=== PATIENT | male | born 1985 | race Caucasian/White ===

== ENCOUNTER 2018-07-11 03:17 | Emergency (ER) | payer OTHER ==
[~2018-07-11] VITALS: Ht 172.7 cm; Wt 72.6 kg
[2018-07-11] MEDS ORDERED: PROZAC20 MG PO (03:22)
[2018-07-11] MEDS ORDERED: COZAAR 25 MG TA25 M1 PO (03:22)
[2018-07-11 04:09] LABS: ABSOLUTE LYMPHOCYTES 0.6 thou/uL (0.8-5.3); ABSOLUTE MONOCYTES 0.8 thou/uL (0.0-1.2); ABSOLUTE NEUTROPHILS 3.1 thou/uL (1.6-8.1); BASOPHILS 0.6 %; EOSINOPHILS 0.3 %; HEMATOCRIT 40.2 % (42.0-52.0); LYMPHOCYTES 13.5 %; MCH 35.8 pg (26.0-34.0); MCHC 34.8 g/dL (28.0-37.0); MONOCYTES 18.5 %; MPV 8.6 fl. (7.2-11.1); NUCLEATED RBCS 0 /100WBC; PLATELET COUNT* 127 thou/uL (150-400); POLYS 67.1 %; RDW-CV 13.3 % (10.5-14.5); WBC 4.6 thou/uL (4.0-11.0)
[2018-07-11 04:21] LABS: ANION GAP 9 mmol/L (7-16); BUN 12 mg/dL (7-18); CHLORIDE 97 mmol/L (98-107); CO2 28 mmol/L (21-32); CREATININE 0.9 mg/dL (0.6-1.3); GLUCOSE 161 mg/dL (70-99); POTASSIUM 3.9 mmol/L (3.5-5.1); SODIUM 134 mmol/L (136-145)
[2018-07-11 04:28] LABS: ALKALINE PHOSPHATASE 88 U/L (46-116); SGOT 270 U/L (15-37); SGPT 288 U/L (30-65); TOTAL PROTEIN 7.7 g/dL (6.4-8.2); TROPONIN-I LEVEL <0.06 ng/mL (<0.06)
[2018-07-11] MEDS ORDERED: KEPPRA 500 MG500 MG PO (05:07)
[2018-07-11 06:04] VITALS: BP 151/88
--- NOTE | 2018-07-11 10:20 | EKG ---
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1985 Requested By: Sebas Cortes Order Number: [id number] MD: Philip Bergeron Measurements Intervals [place] Rate: 75 P: 13 NH: 159 QRS: -33 QRSD: 99 T: 23 QT: 383 QTc: 428 Interpretive Statements Sinus arrhythmia Left axis deviation ST elev, probable normal early repol pattern No previous ECG available for comparison Electronically Signed On 07-11-2018 10:20:18 CONTENT ASSISTANT by Philip Bregeron [email or web address] <ELECTRONICALLY SIGNED> By: Philip Bergeron MD, [facility] 07/11/18 1020 0322 [id number] Philip Bergeron MD, FACC /EPI
--- NOTE | 2018-07-11 10:21 | EKG ---
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
== END 2018-07-11 06:04 | disposition home or self-care (01) ==
LOC: M.ERS 03:17
PROVIDERS: Emergency Medicine Emergency Medical Services
DX: R56.9 Unspecified convulsions (principal); I10 Essential (primary) hypertension; F17.210 Nicotine dependence, cigarettes, uncomplicated